=== PATIENT | male | born 1990 | race American Indian/Alaskan Native ===

== ENCOUNTER 2018-03-30 21:19 | Emergency (ER) | payer OTHER, BC ==
[2018-03-30 21:35] VITALS: BP 133/84
[2018-03-30] MEDS ORDERED: MOTRIN PO ONE (22:49)
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
== END 2018-03-30 23:40 | disposition home or self-care (01) ==
LOC: ED 21:19
DX: M25.512 Pain in left shoulder (principal); V49.49XA Driver injured in collision with other motor vehicles in traffic accident, initial encounter; W22.10XA Striking against or struck by unspecified automobile airbag, initial encounter; Y93.89 Activity, other specified; Y92.89 Other specified places as the place of occurrence of the external cause; Y99.8 Other external cause status
CPT/HCPCS: 99283